=== PATIENT | female | born 1940 | race American Indian/Alaskan Native ===

== ENCOUNTER 2017-04-18 10:43 | Outpatient (CLI) | payer MEDICARE ==
--- NOTE | 2017-04-18 12:29 | Mammography Report ---
BONE DENSITY STUDY: Postmenopausal. DEFINITIONS: BMD = Bone Mineral Density T-score = BMD related to mean peak bone mass of young adult (mean expressed in Standard Deviation) Z-score = Age matched BMD expressed in SD World Health Organization (WHO) Diagnostic Criteria Normal T-score > -1 SD Osteopenia T-score between -1 and -2.4 SD Osteoporosis T-score -2.5 SD or below FINDINGS: The weighted average BMD of lumbar spine L1-L4 is 1.461 with a T-score of 3.8. The weighted average BMD of the left hip is 1.115 with a T-score of 1.4. When compared to the prior exam in March 2015 there has been generalized improvement in the bone densities of the spine and hip. IMPRESSION: The patient's average T-score is diagnostic for normal bone density and low relative risk for fracture. NOTE: BMD is not the only risk factor for fracture; also consider factors such as the patient's age, risk of falling, previous osteoporotic fracture, family history of osteoporotic fractures, current smoker, and low body weight. Nichols's triangle is a region of interest in femur, predominantly of trabecular bone. It is not a true anatomic site, and [facility] does not recommend its use clinically.
== END 2017-04-18 10:44 | disposition home or self-care (01) ==
LOC: SPVWC 10:43
PROVIDERS: ATTEND Internal Medicine
DX: Z78.0 Asymptomatic menopausal state (principal)
CPT/HCPCS: 77080

== ENCOUNTER 2017-11-08 12:53 | Outpatient (CLI) | payer MEDICARE ==
--- NOTE | 2017-11-08 13:57 | Mammography Report ---
LEFT DIGITAL SCREENING MAMMOGRAM with CAD: 11/08/17 12:53:00 CLINICAL: Routine screening. Breast cancer survivor status post right mastectomy and left benign biopsies. COMPARISON:12/24/15, 05/18/16, and 11/02/16 FINDINGS: The breast is heterogeneously dense with a stable fibroglandular pattern. Upper inner surgical clips with stable architectural distortion at the clips. No suspicious architectural distortion.No mass or suspicious calcifications. Scattered calcifications with benign morphology are stable. IMPRESSION: No mammographic evidence of malignancy. BI-RADS CATEGORY: 2 -- Benign RECOMMENDATION: Routine screening in one year. ACR BI-RADS MAMMOGRAPHIC CODES: 0 = Needs additional imaging evaluation; 1 = Negative; 2 = Benign; 3 = Probably benign; 4 = Suspicious; 5 = Malignant; 6 = Known biopsy-proven malignancy COMMENT: 1. Dense breast tissue, i.e., adenosis, fibrocystic changes, etc., may obscure an underlying neoplasm. 2. Approximately 10% of cancers are not detected with mammography. 3. A negative mammography report should not delay biopsy if a clinically suspicious mass is present. COMMENT: Patient follow-up letters are generated via our [employer] application.
== END 2017-11-08 12:54 | disposition home or self-care (01) ==
LOC: SPVWC 12:53
PROVIDERS: ATTEND Internal Medicine
DX: Z12.31 Encounter for screening mammogram for malignant neoplasm of breast (principal); Z90.11 Acquired absence of right breast and nipple
CPT/HCPCS: 77067; G0202; G0202-52

== ENCOUNTER 2019-04-20 08:10 | Outpatient (CLI) | payer MEDICARE ==
--- NOTE | 2019-04-20 09:36 | Mammography Report ---
BONE DEXA:04/20/19 08:10:00 CLINICAL: Postmenopausal. COMPARISON: 04/18/17 and 04/16/15 TECHNIQUE: Two site bone DEXA performed on an Hologic scanner. FINDINGS: The average BMD of the lumbar spine L1-L4 is 1.450g/cm squared with a T-score of +3.7 and a Z-score of +6.2. This compares to 1.461g/cm squared on the last exam and represents a -0.8% change from the last study but a +3.6% change from baseline. The average BMD of the left hip is 1.149g/cm squared with a T-score of +1.7 and a Z-score of 3.6. This compares to 1.115g/cm squared on the last exam and represents a +3.0% change from the last study and a +10.5% change from baseline. IMPRESSION: 1. WHO classification: Normal with average fracture risk based on both spine and left measurements. 2. A slight decline in spine BMD but a modest improvement in left hip BMD compared to the last exam. RECOMMENDATION: Clinical correlation and routine screening. DEFINITIONS: BMD = Bone Mineral Density T-score = BMD related to mean peak bone mass of young adult (mean expressed in Standard Deviation) Z-score = Age matched BMD expressed in SD World Health Organization (WHO) Diagnostic Criteria Normal T-score > -1 SD Osteopenia T-score between -1 and -2.4 SD Osteoporosis T-score -2.5 SD or below NOTE: BMD is not the only risk factor for fracture; also consider factors such as the patient's age, risk of falling, previous osteoporotic fracture, family history of osteoporotic fractures, current smoker, and low body weight. Z-scores are not calculated if >80 years of age.
== END 2019-04-20 08:11 | disposition home or self-care (01) ==
LOC: SPVWC 08:10
PROVIDERS: ATTEND Internal Medicine
DX: Z78.0 Asymptomatic menopausal state (principal)
CPT/HCPCS: 77080

== ENCOUNTER 2019-12-04 07:50 | Outpatient (CLI) | payer MEDICARE ==
--- NOTE | 2019-12-04 08:50 | Mammography Report ---
DIGITAL SCREENING MAMMOGRAM WITH CAD, 12/04/2019 INDICATION: Routine screening mammography. Breast cancer survivor status post right mastectomy and st atus post left benign biopsies. TECHNIQUE: Digital left 2D mammography was obtained in the craniocaudal and mediolateral oblique pro jections. This examination was interpreted with the benefit of Computer-Aided Detection analysis. COMPARISON: 11/14/2018 and 11/02/2016 FINDINGS: Breast Density: The breast is heterogeneously dense, which may obscure small masses. Stable upper inn er postsurgical scar. Surgical clips at the scar. Numerous groups of calcifications with benign morph ology are unchanged compared to previous exams. An outer biopsy clip is from a stereotactic biopsy. T here is no evidence of dominant mass, suspicious calcifications or architectural distortion in the le ft breast. IMPRESSION: No mammographic evidence of malignancy. Follow up recommendation: Routine yearly BI-RADS Category 2: Benign. A "normal" or negative report should not discourage follow up or biopsy of a clinically significant f inding. A written summary of these findings will be mailed to the patient. The patient will be entered into a mammography reporting system which will generate a reminder letter for the patient's next appointmen t at the appropriate interval. The [employer] recommends yearly mammograms starting at age 40 and continuing as l rajesh as a woman is in good health. Breast MRI is recommended for women with an approximate 20-25% or greater lifetime risk of breast cancer, including women with a strong family history of breast or ova evelyn cancer or who have been treated for Hodgkin's disease. Signer Name: Chay Devine MD Signed: 12/04/2019 8:46 AM Workstation Name: [id number]
== END 2019-12-04 07:51 | disposition home or self-care (01) ==
LOC: SPVWC 07:50
PROVIDERS: ATTEND Surgery
DX: Z12.31 Encounter for screening mammogram for malignant neoplasm of breast (principal)
CPT/HCPCS: 77067

== ENCOUNTER 2020-12-02 08:21 | Outpatient (CLI) | payer MEDICARE ==
--- NOTE | 2020-12-02 09:22 | Mammography Report ---
DIGITAL SCREENING MAMMOGRAM WITH CAD, 12/02/2020 CLINICAL INFORMATION / INDICATION: Routine screening mammography. UNILAT LT SCREENING TECHNIQUE: Digital left 2D mammography was obtained in the craniocaudal and mediolateral oblique pro jections. This examination was interpreted with the benefit of Computer-Aided Detection analysis. COMPARISON: 12/24/2015 through 12/04/2019. FINDINGS: Breast Density: The breasts are heterogeneously dense, which may obscure small masses. Multiple left breast calcifications, including breast arterial calcifications, are again identified a nd are stable. There are multiple surgical/biopsy clips in the left breast. Left breast scarring is s table. No new abnormality is seen. I see no evidence of a dominant mass or new calcifications. IMPRESSION: No mammographic evidence of malignancy. Follow up recommendation: Routine yearly BI-RADS Category 2: Benign. A "normal" or negative report should not discourage follow up or biopsy of a clinically significant f inding. A written summary of these findings will be mailed to the patient. The patient will be entered into a mammography reporting system which will generate a reminder letter for the patient's next appointmen t at the appropriate interval. The [employer] recommends yearly mammograms starting at age 40 and continuing as l rajesh as a woman is in good health. Breast MRI is recommended for women with an approximate 20-25% or greater lifetime risk of breast cancer, including women with a strong family history of breast or ova evelyn cancer or who have been treated for Hodgkin's disease. Signer Name: Germán Devries MD Signed: 12/02/2020 9:18 AM Workstation Name: [id number]
== END 2020-12-02 08:22 | disposition home or self-care (01) ==
LOC: MAMMO 08:21
PROVIDERS: ATTEND Surgery
DX: Z12.31 Encounter for screening mammogram for malignant neoplasm of breast (principal); R92.1 Mammographic calcification found on diagnostic imaging of breast